=== PATIENT | female | born 1925 | race Caucasian/White ===

== ENCOUNTER 2016-07-29 08:39 | Outpatient (CLI) | payer MEDICARE ==
[2016-07-29 11:04] LABS: ALT (SGPT) 11 U/L (0-55); AST (SGOT) 20 U/L (5-34); Alkaline Phosphatase 101 U/L (40-150); Anion Gap 13 mmol/L (10-20); BUN (Urea Nitrogen) 17 mg/dL (9.8-20.1); Bilirubin, Total 0.7 mg/dL (0.2-1.2); Calc. Creatinine Clearance 0 mL/min (70-130); Calcium 9.2 mg/dL (7.8-10.44); Carbon Dioxide 23 mmol/L (23-31); Chloride 108 mmol/L (98-107); Estimated GFR-MDRD 45; Globulin 3.4 g/dL (2.4-3.5)
--- NOTE | 2016-07-29 11:32 | RAD ---
CHEST 2 VIEWS: HISTORY: Lymphoma. Pneumonia. COMPARISON: 07/19/16. FINDINGS: Cardiac silhouette and pulmonary vasculature are unremarkable. Mediastinum is midline with aortic c alcification and a left-sided Port-A-Cath. Lungs remain hyperinflated. Ill-defined parenchymal opa city within the right middle lobe is apparent on the lateral view and has the appearance of atelecta sis. It has improved since the prior exam. IMPRESSION: 1. Improved aeration in the right middle lobe, mild residual scarring and atelectasis are present. 2. Chronic obstructive pulmonary disease. 3. Atherosclerosis. POS: [facility]
[2016-07-29 12:12] LABS: Anisocytosis SLIGHT = 6-15 cells (100X) (0-5/hpf); Hematocrit 33.7 % (36.0-47.0); Hypochromia SLIGHT = 6-15 cells (100X) (0-5/hpf); Mean Platelet Volume 4.9 fL (7.4-10.4); Neutrophil 30 % (42-75); Red Blood Cell (RBC) Count 3.73 mill/uL (4.20-5.40); White Blood Cell (WBC) Count 19.6 thou/uL (4.8-10.8)
== END 2016-07-29 08:40 | disposition home or self-care (01) ==
LOC: NAV LAB 08:39
PROVIDERS: ATTEND Family Medicine
DX: C85.13 Unspecified B-cell lymphoma, intra-abdominal lymph nodes (principal); E03.9 Hypothyroidism, unspecified; D63.0 Anemia in neoplastic disease; E53.8 Deficiency of other specified B group vitamins; J18.9 Pneumonia, unspecified organism
CPT/HCPCS: 36415; 71020; 80053; 82306; 82607; 82746; 84425; 84443; 85025